=== PATIENT | female | born 1960 | race Caucasian/White ===

== ENCOUNTER → 2019-10-02 | Outpatient (CLI) | payer OTHER ==
[~2019-10-02] MED LIST: PERCOCET 5-3251 EACH PO
== END ==
LOC: M.RAD 07:00
DX: Z12.31 Encounter for screening mammogram for malignant neoplasm of breast (principal)

== ENCOUNTER → 2020-02-26 | Outpatient (CLI) | payer OTHER ==
[~2020-02-26] MED LIST changes: +KLOR-CON 1010 MEQ PO; +LEVO-T50 MCG PO; +METOPROLOL SUC100 MG PO; +MOBIC15 MG PO; +NEURONTIN 300M300 M2 PO; +NORTRIPTYLINE H50 M3 PO; +OMEPRAZOLE40 MG PO; +PERCOCET PO; +SIMVASTATIN40 MG PO; +TRIAMTERENE/HCT1 CA1 PO; +XARELTO10 MG PO
== END ==
LOC: M.MRI 09:00
PROVIDERS: ATTEND Orthopaedic Surgery
DX: S83.242A Other tear of medial meniscus, current injury, left knee, initial encounter (principal); M17.12 Unilateral primary osteoarthritis, left knee; X58.XXXA Exposure to other specified factors, initial encounter; Y93.89 Activity, other specified; Y92.89 Other specified places as the place of occurrence of the external cause; Y99.8 Other external cause status

== ENCOUNTER 2020-03-17 06:55 | Inpatient (IN) | payer OTHER ==
[2020-03-10 09:30] LABS: URINE BILIRUBIN NEGATIVE (Negative); URINE BLOOD NEGATIVE (Negative); URINE CLARITY CLEAR; URINE COLOR YELLOW; URINE GLUCOSE-RANDOM NEGATIVE (Negative); URINE KETONES NEGATIVE (Negative); URINE LEUKOCYTES-REFLEX NEGATIVE (Negative); URINE NITRITE-REFLEX NEGATIVE (Negative); URINE PROTEIN NEGATIVE (Negative); URINE UROBILINOGEN 0.2 E.U./dl (0.2-1.0)
[2020-03-10 11:04] LABS: HEMATOCRIT 44.8 % (37.0-47.0); HEMOGLOBIN 15.2 gm/dL (12.0-15.0); MCV 91.3 fL (80.0-100.0); MPV 9.3 fl. (7.2-11.1); RBC 4.9 mil/uL (4.20-5.00); RDW-CV 13.7 % (10.5-14.5); WBC 9.5 thou/uL (4.0-11.0)
[2020-03-10 11:10] LABS: INR 1.1; PROTIME 10.9 Seconds (9.20-11.50)
[2020-03-10 11:18] LABS: CALCIUM 9.2 mg/dL (8.5-10.1); CREATININE 1.1 mg/dL (0.6-1.3); POTASSIUM 3.6 mmol/L (3.5-5.1); TOTAL BILIRUBIN 0.4 mg/dL (<0.1-1.0); TOTAL PROTEIN 8.2 g/dL (6.4-8.2)
--- NOTE | 2020-03-10 19:18 | EKG ---
[place] [address] ELECTROCARDIOGRAM REPORT Name: MONICA HOWARD Room: [facility]#: [id number] Admission: Attend Phys: Ant Hinds Discharge: Date of : 58 Date of Service: 03/10/20 1035 Report #: [id number] THIS REPORT FOR: //name// [facility] Test Date: 2020-03-10 Test Time: 10:35:35 Pat Name: MONICA HOWARD Department: Room: Gender: F Light Truck Driver: : 1960 Requested By: Ayden Peterson Order Number: [id number] Edna MD: Zain Keys Measurements Intervals [place] Rate: 86 P: 58 CT: 205 QRS: -1 QRSD: 100 T: 41 QT: 355 QTc: 425 Interpretive Statements Sinus rhythm Probable left atrial enlargement Compared to ECG 02/04/2011 08:36:07 No significant changes Electronically Signed On 03-10-2020 17:43:44 CDT by Zain Keys [email or web address] <ELECTRONICALLY SIGNED> By: Zain Keys MD, [facility] 03/10/20 1743 34 Zain Keys MD, [facility] /EPI
[~2020-03-17] VITALS: Ht 165.1 cm; Wt 82.6 kg
--- NOTE | ~2020-03-17 | OP ---
[address] [address] OPERATIVE REPORT Name: MONICA HOWARD Room: [address] IN [facility]#: [id number] Admission: 03/17/20 Attend Phys: Danay Gutierrez Discharge: Date of : 58 Report #: [id number] THIS REPORT FOR: //name// cc: Rabia Chiu MD, Lin W. MD ~ THIS REPORT FOR: //name// CC: Rabia Hinds DATE OF SERVICE: 03/17/2020 PREOPERATIVE DIAGNOSIS: Left knee osteoarthritis. POSTOPERATIVE DIAGNOSIS: Left knee osteoarthritis. PROCEDURE: Left total knee arthroplasty. SURGEON: Ayden Peterson II, DO. STORAGE BATTERY INSPECTOR: ISRAEL Morrow. ANESTHESIA: General endotracheal. ESTIMATED BLOOD LOSS: 50 mL. ANTIBIOTICS: Ancef preoperatively. DRAINS: Medium Hemovac. COMPLICATIONS: None. CONDITION OF THE PATIENT: Stable to recovery room. IMPLANTS: Listed in operative record and progress note. BRIEF HISTORY: The patient was seen in preoperative area. The patient's preoperative H and P was performed. The patient's site was marked, questions were answered. Risks and benefits were discussed with the patient in detail about surgery. The patient wished to proceed, assuming all risks. DESCRIPTION OF PROCEDURE: The patient was taken to the operative suite and placed supine on the operative table, given appropriate anesthesia. A well-padded tourniquet applied to upper thigh, which was inflated to 300 mmHg after gravity exsanguination. The operative knee [place] [address] OPERATIVE REPORT Name: MONICA HOWARD Room: [address] IN [facility].#: [id number] Admission: 03/17/20 Attend Phys: Danay Gutierrez Discharge: Date of : 58 Report #: [id number] draped. Surgery began by midline incision. This was carried down to the subcutaneous tissues. A medial parapatellar arthrotomy was performed and carried down to bone. Patella was then everted and excess soft tissue removed from around the femur. Femoral cutting block was then applied, checked with a drop wayne for rotational alignment, pinned in appropriate position and appropriate cuts were made. A 4-in-1 cutting block was then applied, checked for rotational alignment, pinned in appropriate position and appropriate cuts were made. The tibia was then exposed. Excess meniscus was removed. Retractor was placed on collateral ligaments. The tibial cutting block was applied, pinned in appropriate position, checked with a drop wayne for rotational alignment and slope and appropriate cut was made. The tibial bone was removed. Tibial base plate was then applied, checked for rotational alignment with the drop wayne and it was then pinned in appropriate position. Femur was then applied and box cut was reamed. It was then trialed with appropriate spacer, which showed excellent fit and fill and excellent stability of the knee throughout all range of motion. The patella was reamed in appropriate fashion and sized to appropriate size. Three peg holes were drilled and it was then trialed and showed excellent flexion and extension, excellent tracking of the patella within the groove. These trials were then removed. The tibia was punched in appropriate fashion. Bone ends were cleansed with Pulsavac irrigation and cement was mixed and applied to final implants. These were then malleted into position and held the knee in extension and compressed to allow cement to cure. After it cured, excess was removed utilizing [place] and osteotome. Wound was then copiously irrigated and the final spacer was then malleted into position. The tourniquet was deflated. Hemostasis was maintained with electrocautery. Pain cocktail was injected. PRP gel sprayed throughout the internal aspects of the knee. Medium Hemovac drain was applied. The capsule was closed with #2 FiberWire and 1-0 Vicryl in [id number] fashion. Skin was closed with 2-0 Vicryl and running 3-0 Monocryl. Dermabond and sterile dressing applied. Monico wrap and PolarCare applied. The patient transported to recovery room in stable condition. Counts were correct throughout the procedure. By: [id number] Peterson II, DO /nt
[~2020-03-17 06:55] MED LIST changes: -KLOR-CON 1010 MEQ PO; -PERCOCET PO; -XARELTO10 MG PO
[2020-03-17 08:00] VITALS: BP 133/88
[2020-03-17 11:55] VITALS: BP 145/87
[2020-03-17 16:30] VITALS: BP 106/65
[2020-03-17 20:00] VITALS: BP 135/74
[2020-03-18] VITALS: BP 142/81
[2020-03-18 04:00] VITALS: BP 106/63
[2020-03-18 05:18] LABS: HEMATOCRIT 38.8 % (37.0-47.0); HEMOGLOBIN 12.6 gm/dL (12.0-15.0)
[2020-03-18 08:10] VITALS: BP 135/77
[2020-03-18] MEDS ORDERED: PERCOCET PO (08:29)
[2020-03-18] MEDS ORDERED: XARELTO10 MG PO (08:29)
[2020-03-18 12:11] VITALS: BP 135/77
== END 2020-03-18 17:00 | disposition home health service (06) | DRG 470 ==
LOC: M.PRE → M.ORTHSURG 06:55 → M.TBA 06:55 → M.PRE 11:00 → M.ORTHSURG 11:55 → M.PRE 13:34 → M.ORTHSURG 03-18 17:00
PROVIDERS: Orthopaedic Surgery; ADMIT Internal Medicine; ATTEND Internal Medicine
PROC: 0SRD0J9 Replacement of Left Knee Joint with Synthetic Substitute, Cemented, Open Approach (ICD-10-PCS; principal; 2020-03-17)
DX: M17.12 Unilateral primary osteoarthritis, left knee (principal); I10 Essential (primary) hypertension; E78.00 Pure hypercholesterolemia, unspecified; K21.9 Gastro-esophageal reflux disease without esophagitis; E03.9 Hypothyroidism, unspecified; F41.9 Anxiety disorder, unspecified; F32.9 Major depressive disorder, single episode, unspecified; Z87.891 Personal history of nicotine dependence; Z72.89 Other problems related to lifestyle; Z03.818 Encounter for observation for suspected exposure to other biological agents ruled out

== ENCOUNTER 2020-03-22 05:04 | Emergency (ER) | payer OTHER ==
[~2020-03-22] VITALS: Ht 165.1 cm; Wt 81.7 kg
[~2020-03-22 05:04] MED LIST changes: +PERCOCET PO; +XARELTO10 MG PO
[2020-03-22 05:46] LABS: ABSOLUTE BASOPHILS 0.1 thou/uL (0.0-0.2); ABSOLUTE EOSINOPHILS 0.1 thou/uL (0.0-0.7); ABSOLUTE LYMPHOCYTES 1.4 thou/uL (0.8-5.3); ABSOLUTE MONOCYTES 1.3 thou/uL (0.0-1.2); ABSOLUTE NEUTROPHILS 14.3 thou/uL (1.6-8.1); BASOPHILS 0.4 %; EOSINOPHILS 0.8 %; HEMOGLOBIN 13.3 gm/dL (12.0-15.0); LYMPHOCYTES 8.4 %; MCH 30.2 pg (26.0-34.0); MCHC 33.3 g/dL (28.0-37.0); MCV 90.7 fL (80.0-100.0); MONOCYTES 7.7 %; MPV 10.1 fl. (7.2-11.1); NUCLEATED RBCS 0 /100WBC; PLATELET COUNT* 267 thou/uL (150-400); POLYS 82.7 %; RBC 4.41 mil/uL (4.20-5.00); RDW-CV 13.5 % (10.5-14.5); WBC 17.3 thou/uL (4.0-11.0)
[2020-03-22 07:01] LABS: CALCIUM 9.1 mg/dL (8.5-10.1); CREATININE 1.4 mg/dL (0.6-1.3)
[2020-03-22 07:04] LABS: POTASSIUM 2.9 mmol/L (3.5-5.1)
[2020-03-22 07:05] LABS: ALBUMIN 3.2 g/dL (3.4-5.0); TOTAL BILIRUBIN 0.5 mg/dL (<0.1-1.0)
[2020-03-22] MEDS ORDERED: KLOR-CON 1010 MEQ PO (07:06)
[2020-03-22 07:20] VITALS: BP 149/80
== END 2020-03-22 07:21 | disposition home or self-care (01) ==
LOC: M.ERS 05:04
PROVIDERS: Personal Emergency Response Attendant
DX: R55 Syncope and collapse (principal); R42 Dizziness and giddiness; K21.9 Gastro-esophageal reflux disease without esophagitis; I10 Essential (primary) hypertension; E78.00 Pure hypercholesterolemia, unspecified; M19.90 Unspecified osteoarthritis, unspecified site; E03.9 Hypothyroidism, unspecified; F17.210 Nicotine dependence, cigarettes, uncomplicated; Z96.652 Presence of left artificial knee joint

== ENCOUNTER → 2020-07-13 | Outpatient (CLI) | payer OTHER ==
[~2020-07-13] MED LIST changes: +KLOR-CON 1010 MEQ PO
== END ==
LOC: M.MRI 08:05
PROVIDERS: ATTEND Orthopaedic Surgery
DX: S83.241A Other tear of medial meniscus, current injury, right knee, initial encounter (principal); S83.281A Other tear of lateral meniscus, current injury, right knee, initial encounter; M23.91 Unspecified internal derangement of right knee; M17.11 Unilateral primary osteoarthritis, right knee; X58.XXXA Exposure to other specified factors, initial encounter; Y93.89 Activity, other specified; Y92.89 Other specified places as the place of occurrence of the external cause; Y99.8 Other external cause status; M25.78 Osteophyte, vertebrae

== ENCOUNTER → 2020-08-10 | Outpatient (CLI) | payer OTHER ==
[2020-08-10 12:27] LABS: HEMATOCRIT 41.9 % (37.0-47.0); HEMOGLOBIN 13.8 gm/dL (12.0-15.0); MCH 29.7 pg (26.0-34.0); MCHC 32.9 g/dL (28.0-37.0); MPV 9.1 fl. (7.2-11.1); RBC 4.66 mil/uL (4.20-5.00); RDW-CV 14.5 % (10.5-14.5); WBC 9.5 thou/uL (4.0-11.0)
[2020-08-10 12:33] LABS: URINE BILIRUBIN NEGATIVE (Negative); URINE BLOOD NEGATIVE (Negative); URINE CLARITY CLEAR; URINE COLOR YELLOW; URINE GLUCOSE-RANDOM NEGATIVE (Negative); URINE KETONES NEGATIVE (Negative); URINE LEUKOCYTES-REFLEX NEGATIVE (Negative); URINE NITRITE-REFLEX NEGATIVE (Negative); URINE PROTEIN NEGATIVE (Negative); URINE SPECIFIC GRAVITY <= 1.005 (1.005-1.030); URINE UROBILINOGEN 0.2 E.U./dl (0.2-1.0)
[2020-08-10 12:37] LABS: INR 1.1; PROTIME 11.5 Seconds (9.20-11.50)
[2020-08-10 12:44] LABS: ALBUMIN 3.9 g/dL (3.4-5.0); CALCIUM 9.1 mg/dL (8.5-10.1); CREATININE 1.1 mg/dL (0.6-1.3); POTASSIUM 3.7 mmol/L (3.5-5.1); TOTAL BILIRUBIN 0.3 mg/dL (<0.1-1.0)
== END ==
LOC: M.LAB 11:45
PROVIDERS: ATTEND Orthopaedic Surgery
DX: Z01.812 Encounter for preprocedural laboratory examination (principal); Z20.828 Contact with and (suspected) exposure to other viral communicable diseases; M17.11 Unilateral primary osteoarthritis, right knee

== ENCOUNTER 2020-08-18 07:12 | Inpatient (IN) | payer OTHER ==
[~2020-08-18] VITALS: Ht 162.6 cm; Wt 77.1 kg
--- NOTE | ~2020-08-18 | OP ---
[facility] [address] [place] [address] OPERATIVE REPORT Name: ANITAMONICA Gopal Room: [address] IN .R#: [id number] Admission: 08/18/20 Attend Phys: Danay Gutierrez Discharge: Date of : 58 Report #: [id number] THIS REPORT FOR: //name// cc: Rabia Chiu MD, Lin W. MD ~ CC: Rabia Hinds DATE OF SERVICE: 08/18/2020 PREOPERATIVE DIAGNOSIS: Right knee osteoarthritis. POSTOPERATIVE DIAGNOSIS: Right knee osteoarthritis. PROCEDURE: Right total knee arthroplasty. SURGEON: Ayden Peterson II, DO RENAL DIALYSIS RN: ISRAEL Morrow ANESTHESIA: General endotracheal. ESTIMATED BLOOD LOSS: 50 mL. ANTIBIOTICS: Ancef preoperatively. DRAINS: Medium Hemovac. COMPLICATIONS: None. CONDITION OF THE PATIENT: Stable to recovery room. IMPLANTS: Listed in the operative record and progress note. BRIEF HISTORY: The patient was seen in the preoperative area. Preop H and P was performed. Site was marked. Questions were answered. Risks and benefits were discussed with the patient in detail about surgery. The patient wished to proceed assuming all risks. DESCRIPTION OF PROCEDURE: The patient was taken to the operative suite and placed supine on the operating table, given appropriate anesthesia. A well-padded tourniquet applied to the upper thigh, which was inflated to 300 mmHg after gravity exsanguination. The operative knee was sterilely prepped and draped. Surgery began by midline incision. This was carried down to the subcutaneous tissues. A medial parapatellar arthrotomy was performed and [facility] [address] [place] [id number] OPERATIVE REPORT Name: MONICA HOWARD Room: [address] IN .R.#: [id number] Admission: 08/18/20 Attend Phys: Danay Gutierrez Discharge: Date of : 58 Report #: [id number] carried down to bone. Patella was then everted and excess soft tissue was removed from around the femur. Femoral cutting block was then applied. Checked with drop wayne for rotational alignment, pinned in appropriate position and appropriate cuts were made. A 4-in-1 cutting block was then applied, checked for rotational alignment, pinned in appropriate position and appropriate cuts were made. The tibia was exposed. Excess meniscus was removed. Retractor was placed on collateral ligaments. A tibial cutting block was then applied, pinned in appropriate position, checked with drop wayne for rotational alignment and slope and appropriate cut was made. The tibial bone was removed. The tibial base plate was then applied, checked for rotational alignment with the drop wayne and pinned in appropriate position. The reamer was then applied and box cut was reamed. This was then trialed with appropriate spacer, which showed excellent fit and fill and excellent stability of the knee through all range of motion. The patella was reamed in appropriate fashion and sized to appropriate size. Three peg holes were drilled and it was then trialed and it showed excellent flexion, extension, excellent tracking of the patella within the groove. These trials were removed. The tibia was punched in appropriate fashion. Bone ends were cleansed with Pulsavac irrigation and cement was mixed and applied to final implants. These were then malleted into position and held the knee in extension and compressed to allow cement to cure. After it cured, excess was removed using a [place] and osteotome. Wound was then copiously irrigated and the final spacer was then malleted into position. The tourniquet was deflated. Hemostasis was obtained with electrocautery. Pain cocktail was injected. PRP gel sprayed with inspection of the knee. Medium Hemovac drain was applied. Capsule was closed with #2 FiberWire and #1 Vicryl in [id number] fashion. Skin was closed with 2-0 Vicryl and running 3-0 Monocryl. Dermabond and sterile dressing applied. Monico wrap and PolarCare applied. The patient was transported to recovery room in stable condition. Counts were correct throughout the procedure. By: [id number] Peterson II DO /nt
[2020-08-18 07:59] VITALS: BP 129/84
[2020-08-18 13:40] VITALS: BP 125/91
--- NOTE | 2020-08-18 16:19 | NUR ---
PATIENT ADMITTED FROM PACU TO ROOM 315. ALERT AND ORIENTED X 4. RIGHT KNEE DRESSING D/I, POLAR SAKINA IN PLACE. STEPHANY HOSE AND SCD'S. [address] VITALS STABLE. PRN OXY IR GIVEN FOR PAIN THIS EVENING. IVF INFUSING, SCHED ABX TO INFUSE. REG DIET. CALL LIGHT WITHIN REACH.
[2020-08-18 20:00] VITALS: BP 136/90
[2020-08-19] VITALS (10 sets, daily range): BP systolic 101–141; BP diastolic 57–82
[2020-08-19 06:20] LABS: HEMATOCRIT 38.1 % (37.0-47.0); HEMOGLOBIN 12.2 gm/dL (12.0-15.0)
--- NOTE | 2020-08-19 07:29 | NUR ---
PATIENT SLEPT WELL DURING THIS SHIFT. PT GIVEN OXY IR 10MG FOR PAIN. PT ON CPM MACHINE SCHEDULED. FLUIDS/ANTIBIOTICS INFUSING PER DR ORDER. PT DENIES NEEDS AT THIS TIME. FREQUENTLY USED ITEMS AND CALL LIGHT WITHIN REACH. SIDERAILS UPX2. WILL CONTINUE TO MONITOR.
[2020-08-19] MEDS ORDERED: XARELTO10 MG PO (08:39)
--- NOTE | 2020-08-19 15:00 | NUR ---
PT.CLEARED BY THERAPY TO DISCHARGE HOME. DISCHARGE ORDERS FROM FOR HOME HEALTH. PT.CHOSE [facility] . FAXED REFERRAL AND DISCHARGE ORDERS/MEDS TO [facility]. [facility] CONFIRMED THEY COULD ACCEPT. CM CALLED IN PRESCRIPTION WRITTEN TO [facility]TS PHARM[facility]Y. COPAY WAS $18. [place]. SHE SAID HER SON WOULD BE WITH HER AT HOME,HOWEVER. NORMALLY SHE IS INDEPENDENT. HAS A WALKER FOR HOME USE.
--- NOTE | 2020-08-19 17:17 | NUR ---
PATIENT PARTICIPATED IN AM AND AFTERNOON THERAPIES. CPM ORDERED AND UTILIZED. HEMOVAC DC'D THIS AM PER PROTOCOL. PRN OXY IR AND PERCOCET GIVEN FOR PAIN. PATIENT STATED THE PERCOCET CONTROLLED HER PAIN BETTER. VERBLIZED UNDERSTANDING OF PAPERWORK AND SCRIPT. PATIENT TAKEN OUT VIA WHEELCHAIR WITH ALL BELONGINGS.
--- NOTE | 2020-08-19 18:18 | NUR ---
LATE ENTRY-RECIEVED O.T. ORDERS. WILL DEFER TO P.T. AT THIS TIME. PLEASE ORDER FURTHER O.T. SERVICES IF NEEDED.
== END 2020-08-19 17:21 | disposition home health service (06) | DRG 470 ==
LOC: M.TBA 07:12 → M.PRE 10:59 → M.3W 13:43
PROVIDERS: Orthopaedic Surgery; ADMIT Internal Medicine; ATTEND Internal Medicine
DX: M17.11 Unilateral primary osteoarthritis, right knee (principal); F32.9 Major depressive disorder, single episode, unspecified; F41.9 Anxiety disorder, unspecified; E03.9 Hypothyroidism, unspecified; K21.9 Gastro-esophageal reflux disease without esophagitis; E78.00 Pure hypercholesterolemia, unspecified; G62.9 Polyneuropathy, unspecified; I10 Essential (primary) hypertension; F17.210 Nicotine dependence, cigarettes, uncomplicated; E78.5 Hyperlipidemia, unspecified; Z96.652 Presence of left artificial knee joint; Z79.899 Other long term (current) drug therapy